=== PATIENT | male | born 1985 | race Two or more races ===

== ENCOUNTER 2020-05-24 23:07 | Emergency (ER) | payer SELFPAY ==
--- NOTE | 2020-05-24 23:46 | EDM.PDOC ---
ED HPI GENERAL MEDICAL PROBLEM - General Chief Complaint: General Stated Complaint: med clearance Time Seen by Provider: 05/24/20 23:28 Source of Information: Reports: Patient, RN Notes Reviewed - History of Present Illness INITIAL COMMENTS - FREE TEXT/NARRATIVE: 34 yr male brought to ED for medical clearance. Has been drinking whisky, vodka for the past 12 to 14 hrs. Family concerned that he has made suicidal type comments this evening. Police called and have brought him here for eval. and clearance. Pt states it has been a "rough weekend" Has been arguing, fighting with friend and his girlfriend and than this evening with "his significant other of 10 yrs" Upset. Not sure if he really wants to kill himself but does admit to making suicidal type statements. States he has done that in the past as well. No on any current meds. Denies recent drug use. - Related Data Allergies Allergy/AdvReac Type Severity Reaction Status Date / Time No Known Allergies Allergy Verified 05/24/20 23:12 Home Meds: Home Meds . [No Known Home Meds] 05/24/20 [History] Past Medical History - Past Health History Medical/Surgical History: Denies Medical/Surgical History Social & Family History - Tobacco Use Smoking Status *Q: Unknown Ever Smoked - Recreational Drug Use Recreational Drug Use: Yes ED ROS GENERAL - Review of Systems Review Of Systems: See Below Constitutional: Reports: No Symptoms HEENT: Reports: No Symptoms Respiratory: Denies: Shortness of Breath Cardiovascular: Denies: Chest Pain GI/Abdominal: Denies: Abdominal Pain, Vomiting Musculoskeletal: Reports: No Symptoms Skin: Reports: No Symptoms Neurological: Reports: No Symptoms Psychiatric: Reports: Anxiety, Depression, Suicidal Ideation ED EXAM, GENERAL - Physical Exam Exam: See Below General Appearance: Alert, No Apparent Distress Eye Exam: Bilateral Eye: PERRL Throat/Mouth: Normal Inspection Head: Atraumatic. No: Facial Swelling Neck: Supple Respiratory/Chest: No Respiratory Distress, Lungs Clear, Normal Breath Sounds Cardiovascular: Tachycardia Extremities: Normal Inspection Neurological: Alert, Oriented, No Motor/Sensory Deficits Skin Exam: Warm, Dry, Normal Color Course - Vital Signs Last Recorded V/S: Last Vital Signs Temp 97.5 F 05/24/20 23:13 Pulse 103 H 05/24/20 23:50 Resp 18 05/24/20 23:50 BP 99/63 07/19/20 23:50 Pulse Ox 100 05/24/20 23:50 - Re-Assessments/Exams Free Text/Narrative Re-Assessment/Exam: 05/25/20 01:17 No acute medical emergency condition apparent. States he normally drinks 2-3 beers per day, today drinking hard liquor. Upset with and fighting with friend and his girlfriend the last 2 days and today. Than started verbally fighting with his this evening. Does not seem to be in great emotional distress at time of evaluation. He is at least moderately intoxicated. Police will take h im to [facility] for detox. Discharge instr. as documented. Departure - Departure Time of Disposition: 23:42 Disposition: Home, Self-Care 01 Condition: Fair Clinical Impression: Alcohol intoxication, Domestic concerns - Discharge Information Instructions: Binge-Drinking Information, Adult, Suicidal Feelings: How to Help Yourself Forms: ED Department Discharge Additional Instructions: A medical screening exam has been done. No acute medical emergency condition is apparent at this time. Patient is intoxicated, has been drinking hard liquor for the past 12-14 hours. With hx of fighting with friend, significant other and making suicidal comments psychiatric screening by a staff member from [facility] in AM recomended prior to release from [facility]. Sepsis Event Note (ED) - Evaluation Sepsis Screening Result: No Definite Risk - Focused Exam Vital Signs: Vital Signs Temp Pulse Resp BP Pulse Ox 05/24/20 23:50 103 H 18 99/63 100 05/24/20 23:13 97.5 F 109 H 16 124/83 98
== END 2020-05-24 23:50 | disposition home or self-care (01) ==
LOC: JD.ED 23:07
DX: F10.129 Alcohol abuse with intoxication, unspecified (principal); R00.0 Tachycardia, unspecified
CPT/HCPCS: 99282; 99283

== ENCOUNTER 2022-05-01 15:04 | Emergency (ER) | payer OTHER | END 2022-05-01 16:24 | disposition home or self-care (01) | LOC: JD.ED 15:04 | DX: S61.411A Laceration without foreign body of right hand, initial encounter (principal); W22.09XA Striking against other stationary object, initial encounter | CPT/HCPCS: 73130-26-RT; 73130-RT; 99282; 99283-25 ==

== ENCOUNTER 2024-04-23 21:45 | Emergency (ER) | payer MEDICAID, OTHER ==
[2024-04-23] MEDS ORDERED: Lidocaine 1% 5 ML VIAL INJECT ONE (23:44)
[2024-04-24] MEDS: Diphtheria,Pertussis(Acell),Tetanus Vaccine 0.5 ML Syringe IM ONE (00:05)
[2024-04-24] MEDS: Lidocaine 1% 10 ML MDV INJECT ONE (00:07)
== END 2024-04-24 00:55 | disposition home or self-care (01) ==
LOC: JD.ED 21:45
DX: S61.012A Laceration without foreign body of left thumb without damage to nail, initial encounter (principal); Z23 Encounter for immunization; W26.0XXA Contact with knife, initial encounter
CPT/HCPCS: 12002; 90471; 90715; 99282; 99282-25; J3490

== ENCOUNTER 2025-06-26 19:18 | Emergency (ER) | payer OTHER ==
[2025-06-26] MEDS: Ketorolac 60 MG/2 ML SDV IM ONE (21:09)
[2025-06-26] MEDS: Acetaminophen/oxyCODONE 325-5 MG Tab PO ONE (21:10)
== END 2025-06-26 21:23 | disposition home or self-care (01) ==
LOC: JD.ED 19:18
DX: R07.89 Other chest pain (principal); Z87.891 Personal history of nicotine dependence; W11.XXXA Fall on and from ladder, initial encounter
CPT/HCPCS: 71101; 96372; 99283; A9270; J1885